=== PATIENT | female | born 1965 | race Native Hawaiian/Other Pacific Islander ===

== ENCOUNTER → 2023-12-30 | Outpatient (CLI) | payer OTHER, SELFPAY ==
[2023-12-30 11:31] LABS: Basophils % (Auto) 1 % (0-2.5); Eosinophils % (Auto) 0 % (0-10); Hematocrit 38.5 % (36.0-46.0); Hemoglobin 12.6 g/dL (12.0-16.0); Immature Granulocytes % (Auto) 0 % (0-0); Lymphocytes # (Auto) 1.2 Thou/mm3 (1.0-4.8); Lymphocytes % (Auto) 32 % (10-50); Mean Corpuscular HGB Conc 32.7 g/dl (31.0-37.0); Mean Corpuscular Hemoglobin 28.6 pg (25.0-35.0); Mean Corpuscular Volume 88 fL (80-100); Monocytes # (Auto) 0.4 Thou/mm3 (0.0-0.8); Monocytes % (Auto) 11 % (0-12); Neutrophils # (Auto) 2.1 Thou/mm3 (1.8-7.7); Neutrophils % (Auto) 57 % (37-80); Nucleated Red Blood Cell % 0 /100 WBC (0); Platelet Count 201 Thou/mm3 (140-440); RDW Standard Deviation 43.3 fL (36.4-46.3); White Blood Count 3.8 Thou/mm3 (3.6-11.0)
[2023-12-30 11:42] LABS: Alanine Aminotransferase 20 U/L (10-49); Albumin, Serum 4.7 gm/dL (3.5-5.0); Albumin/Globulin Ratio 1.6 (1.2-2.2); Alkaline Phosphatase 53 U/L (46-116); Anion Gap 5 (7-16); Aspartate Amino Transferase 24 U/L (0-34); BUN/Creatinine Ratio 14 Ratio (12-20); Bilirubin,Total 0.6 mg/dL (0.3-1.2); Blood Urea Nitrogen 10 mg/dL (9-23); Calcium 9.7 mg/dL (8.3-10.6); Calcium (Corrected) 9.7 mg/dL (8.5-10.1); Carbon Dioxide 30.4 mMol/L (20.0-31.0); Chloride 105 mMol/L (98-107); Creatinine (Component) 0.7 mg/dL (0.6-1.3); Glucose 90 mg/dL (74-106); Osmolality,Calculated 278 (275-295); Sodium 140 mMol/L (136-145); Total Protein 7.7 gm/dL (5.7-8.2); eGFR > 60 See Note
== END | disposition home or self-care (01) ==
LOC: SCTO 10:09
PROVIDERS: PCP Family Medicine; Referring Provider Internal Medicine Hematology & Oncology; Visit Provider Internal Medicine Hematology & Oncology
DX: C50.411 Malignant neoplasm of upper-outer quadrant of right female breast (principal); G56.92 Unspecified mononeuropathy of left upper limb
CPT/HCPCS: 36415; 80053; 85025

== ENCOUNTER → 2024-01-07 | Outpatient (CLI) | payer OTHER, SELFPAY ==
[2024-01-07 10:58] LABS: Basophils % (Auto) 1 % (0-2.5); Eosinophils % (Auto) 0 % (0-10); Hematocrit 37.7 % (36.0-46.0); Hemoglobin 12.5 g/dL (12.0-16.0); Immature Granulocytes % (Auto) 0 % (0-0); Immature Granulocytes Auto 0.01 Thou/mm3 (0.00-0.00); Lymphocytes # (Auto) 1.1 Thou/mm3 (1.0-4.8); Lymphocytes % (Auto) 29 % (10-50); Mean Corpuscular HGB Conc 33.2 g/dl (31.0-37.0); Mean Corpuscular Volume 88 fL (80-100); Monocytes # (Auto) 0.4 Thou/mm3 (0.0-0.8); Monocytes % (Auto) 10 % (0-12); Neutrophils # (Auto) 2.3 Thou/mm3 (1.8-7.7); Neutrophils % (Auto) 59 % (37-80); Nucleated Red Blood Cell % 0 /100 WBC (0); Platelet Count 220 Thou/mm3 (140-440); RDW Standard Deviation 43.2 fL (36.4-46.3); Red Blood Count 4.31 Miln/mm3 (4.00-5.20); White Blood Count 3.9 Thou/mm3 (3.6-11.0)
[2024-01-07 11:36] LABS: Alanine Aminotransferase 24 U/L (10-49); Albumin, Serum 4.6 gm/dL (3.5-5.0); Albumin/Globulin Ratio 1.6 (1.2-2.2); Alkaline Phosphatase 56 U/L (46-116); Anion Gap 4 (7-16); Aspartate Amino Transferase 27 U/L (0-34); BUN/Creatinine Ratio 17 Ratio (12-20); Bilirubin,Total 0.6 mg/dL (0.3-1.2); Blood Urea Nitrogen 12 mg/dL (9-23); Calcium 9.8 mg/dL (8.3-10.6); Calcium (Corrected) 9.8 mg/dL (8.5-10.1); Carbon Dioxide 31.1 mMol/L (20.0-31.0); Cardiac Risk Estimate 2.8 RATIO (3.7-5.6); Chloride 105 mMol/L (98-107); Cholesterol 140 mg/dL (132-200); Creatinine (Component) 0.7 mg/dL (0.6-1.3); Free T4 (Free Thyroxine) 1.41 ng/dL (0.89-1.76); Globulin 2.8 gm/dL (2.3-3.5); Glucose 88 mg/dL (74-106); HDL Cholesterol 50 mg/dL (40-60); LDL Cholesterol,Calculated 68 mg/dL (0-130); Osmolality,Calculated 278 (275-295); Potassium 4.2 mMol/L (3.4-5.1); Sodium 140 mMol/L (136-145); Thyroid Stimulating Hormone 0.58 uIU/mL (0.55-4.78); Total Protein 7.4 gm/dL (5.7-8.2); Triglycerides 111 mg/dL (30-150); eGFR > 60 See Note
== END | disposition home or self-care (01) ==
LOC: COPL 09:59
PROVIDERS: PCP Family Medicine; Referring Provider Family Medicine; Visit Provider Family Medicine
DX: E78.2 Mixed hyperlipidemia (principal); D64.9 Anemia, unspecified; R94.6 Abnormal results of thyroid function studies
CPT/HCPCS: 36415; 80053; 80061; 84439; 84443; 85025

== ENCOUNTER 2024-01-21 10:10 | Outpatient (RCR) | payer OTHER, SELFPAY | END 2024-01-24 23:59 | disposition home or self-care (01) | LOC: SCTC 10:10 | PROVIDERS: PCP Family Medicine; Referring Provider Family Medicine; Visit Provider Nurse Practitioner Family | DX: C50.311 Malignant neoplasm of lower-inner quadrant of right female breast (principal); M85.80 Other specified disorders of bone density and structure, unspecified site; Z79.811 Long term (current) use of aromatase inhibitors; E03.9 Hypothyroidism, unspecified; Z90.11 Acquired absence of right breast and nipple | CPT/HCPCS: 99212; G0463 ==

== ENCOUNTER → 2024-03-02 | Outpatient (CLI) | payer OTHER, SELFPAY ==
--- NOTE | 2024-03-02 09:15 | XR_ITS ---
Examination: Diagnostic digital mammography, unilateral, left Computer aided detection 3-D breast Tomosynthesis, unilateral Date and time of exam: March 02, 2024 0908 hours INDICATIONS: Personal history right breast cancer right mastectomy, history focal asymmetry upper outer quadrant left breast Technique: Nonmagnified MLO, CC views of the left breast have been obtained, reconstructed from 3-D Tomosynthesis images. R2 computer aided detection program utilized for evaluation of suspicious masses and/or abnormal calcifications. 3-D Tomosynthesis images obtained. Findings: The breast is heterogeneously dense, which may obscure small masses Focal asymmetry is unchanged upper outer left breast Diffuse left breast calcifications Impression: BI-RADS category 2: Benign findings Yearly follow-up mammography Please see the left breast sonogram report 11/04/2023 recommend dating 6 month left breast sonogram follow-up
== END | disposition home or self-care (01) ==
PROVIDERS: PCP Family Medicine; Referring Provider Nurse Practitioner Family; Visit Provider Nurse Practitioner Family
DX: R92.322 Mammographic fibroglandular density, left breast (principal); R92.8 Other abnormal and inconclusive findings on diagnostic imaging of breast
CPT/HCPCS: 77061; 77065; G0279

== ENCOUNTER → 2024-03-24 | Outpatient (CLI) | payer OTHER, SELFPAY ==
[2024-03-24 11:40] LABS: Basophils % (Auto) 1 % (0-2.5); Eosinophils % (Auto) 0 % (0-10); Hematocrit 37.8 % (36.0-46.0); Hemoglobin 12.3 g/dL (12.0-16.0); Immature Granulocytes % (Auto) 0 % (0-0); Lymphocytes # (Auto) 1.2 Thou/mm3 (1.0-4.8); Lymphocytes % (Auto) 32 % (10-50); Mean Corpuscular HGB Conc 32.5 g/dl (31.0-37.0); Mean Corpuscular Hemoglobin 28.7 pg (25.0-35.0); Mean Corpuscular Volume 88 fL (80-100); Monocytes # (Auto) 0.4 Thou/mm3 (0.0-0.8); Monocytes % (Auto) 10 % (0-12); Neutrophils # (Auto) 2.1 Thou/mm3 (1.8-7.7); Neutrophils % (Auto) 57 % (37-80); Nucleated Red Blood Cell % 0 /100 WBC (0); Platelet Count 165 Thou/mm3 (140-440); RDW Standard Deviation 43.3 fL (36.4-46.3); Red Blood Count 4.28 Miln/mm3 (4.00-5.20); White Blood Count 3.7 Thou/mm3 (3.6-11.0)
[2024-03-24 13:06] LABS: Alanine Aminotransferase 31 U/L (10-49); Albumin, Serum 4.4 gm/dL (3.5-5.0); Albumin/Globulin Ratio 1.6 (1.2-2.2); Alkaline Phosphatase 55 U/L (46-116); Anion Gap 7 (7-16); Aspartate Amino Transferase 30 U/L (0-34); BUN/Creatinine Ratio 17 Ratio (12-20); Bilirubin,Total 0.6 mg/dL (0.3-1.2); Blood Urea Nitrogen 12 mg/dL (9-23); Carbon Dioxide 30.5 mMol/L (20.0-31.0); Chloride 107 mMol/L (98-107); Creatinine (Component) 0.7 mg/dL (0.6-1.3); Globulin 2.7 gm/dL (2.3-3.5); Glucose 85 mg/dL (74-106); Osmolality,Calculated 285 (275-295); Potassium 4.6 mMol/L (3.4-5.1); Sodium 144 mMol/L (136-145); Total Protein 7.1 gm/dL (5.7-8.2); eGFR > 60 See Note
== END | disposition home or self-care (01) ==
PROVIDERS: PCP Family Medicine; Referring Provider Nurse Practitioner Family; Visit Provider Nurse Practitioner Family
DX: C50.411 Malignant neoplasm of upper-outer quadrant of right female breast (principal); G56.92 Unspecified mononeuropathy of left upper limb
CPT/HCPCS: 36415; 80053; 85025

== ENCOUNTER 2024-03-31 10:41 | Outpatient (RCR) | payer OTHER, SELFPAY | END 2024-04-23 23:59 | disposition home or self-care (01) | LOC: SCTC 10:41 | PROVIDERS: PCP Family Medicine; Referring Provider Family Medicine; Visit Provider Nurse Practitioner Family | DX: C50.311 Malignant neoplasm of lower-inner quadrant of right female breast (principal); Z79.811 Long term (current) use of aromatase inhibitors; Z90.11 Acquired absence of right breast and nipple; Z92.21 Personal history of antineoplastic chemotherapy; Z92.3 Personal history of irradiation; M85.80 Other specified disorders of bone density and structure, unspecified site | CPT/HCPCS: 99212; G0463 ==

== ENCOUNTER → 2024-05-04 | Outpatient (CLI) | payer OTHER, SELFPAY ==
--- NOTE | 2024-05-04 08:45 | XR_ITS ---
Examination: Breast ultrasound, unilateral, left complete Date and time of exam: May 04, 2024 0839 hrs. Indications: 3:00 cyst versus solid nodule left breast on sonogram November 04, 2023 Technique: Real-time tellez scale ultrasonographic imaging performed left breast including all 4 quadrants as well as nipple retroareolar and axillary region. Findings: Multiple benign cysts, the largest in the 4:00 position 5 x 5 mm No solid nodules Impression: BI-RADS Category 2: Benign findings
== END | disposition home or self-care (01) ==
PROVIDERS: PCP Family Medicine; Referring Provider Family Medicine; Visit Provider Family Medicine
DX: R92.322 Mammographic fibroglandular density, left breast (principal)
CPT/HCPCS: 76641

== ENCOUNTER → 2024-06-09 | Outpatient (CLI) | payer OTHER, SELFPAY ==
[2024-06-09 11:32] LABS: Basophils % (Auto) 1 % (0-2.5); Eosinophils % (Auto) 0 % (0-10); Hematocrit 40.2 % (36.0-46.0); Hemoglobin 13.3 g/dL (12.0-16.0); Immature Granulocytes % (Auto) 0 % (0-0); Immature Granulocytes Auto 0.01 Thou/mm3 (0.00-0.00); Lymphocytes # (Auto) 1.1 Thou/mm3 (1.0-4.8); Lymphocytes % (Auto) 32 % (10-50); Mean Corpuscular HGB Conc 33.1 g/dl (31.0-37.0); Mean Corpuscular Hemoglobin 28.7 pg (25.0-35.0); Mean Corpuscular Volume 87 fL (80-100); Monocytes # (Auto) 0.3 Thou/mm3 (0.0-0.8); Monocytes % (Auto) 9 % (0-12); Neutrophils % (Auto) 58 % (37-80); Nucleated Red Blood Cell % 0 /100 WBC (0); Platelet Count 231 Thou/mm3 (140-440); RDW Standard Deviation 41.8 fL (36.4-46.3); Red Blood Count 4.64 Miln/mm3 (4.00-5.20); White Blood Count 3.4 Thou/mm3 (3.6-11.0)
[2024-06-09 11:57] LABS: Alanine Aminotransferase 23 U/L (10-49); Albumin, Serum 4.5 gm/dL (3.5-5.0); Albumin/Globulin Ratio 1.5 (1.2-2.2); Alkaline Phosphatase 60 U/L (46-116); Anion Gap 4 (7-16); Aspartate Amino Transferase 26 U/L (0-34); BUN/Creatinine Ratio 11 Ratio (12-20); Bilirubin,Total 0.5 mg/dL (0.3-1.2); Blood Urea Nitrogen 9 mg/dL (9-23); Calcium 9.4 mg/dL (8.3-10.6); Calcium (Corrected) 9.4 mg/dL (8.5-10.1); Carbon Dioxide 31.2 mMol/L (20.0-31.0); Chloride 105 mMol/L (98-107); Creatinine (Component) 0.8 mg/dL (0.6-1.3); Globulin 3.1 gm/dL (2.3-3.5); Glucose 93 mg/dL (74-106); Osmolality,Calculated 278 (275-295); Potassium 4.2 mMol/L (3.4-5.1); Sodium 140 mMol/L (136-145); Total Protein 7.6 gm/dL (5.7-8.2); eGFR > 60 See Note
== END | disposition home or self-care (01) ==
LOC: SCTO 10:49
PROVIDERS: PCP Family Medicine; Referring Provider Nurse Practitioner Family; Visit Provider Nurse Practitioner Family
DX: C50.411 Malignant neoplasm of upper-outer quadrant of right female breast (principal); G56.92 Unspecified mononeuropathy of left upper limb
CPT/HCPCS: 36415; 80053; 85025

== ENCOUNTER 2024-06-16 11:11 | Outpatient (RCR) | payer OTHER, SELFPAY ==
--- NOTE | 2024-06-16 14:50 | CTCFLWUP_ITS ---
Patient: SAROJ BRANCH : 1965 Page 2 of 2 FOLLOW UP NOTE DATE OF SERVICE: 06/16/2024 NAME: SAROJ BRANCH ACCOUNT: [id number] : 1965 AGE: 58 INTERVAL HISTORY: Chief Complaint Follow-up for breast cancer, progressive weight loss History of Present Illness Filipe Patel is a patient with a history of breast cancer, diagnosed on December 23, 2012, presenting for follow-up. The patient's initial cancer was T2N0 and MX, and she received chemotherapy followed by 10 years of anti- endocrine therapy. The patient's primary concern is progressive weight loss with no clear reason. She has a history of hyperthyroidism but is not currently under the care of an applications systems engineer. Her last known TSH was less than one. The patient's mammogram has been negative, and her last CT scan of the whole body, done in 2022, did not reveal any concern for malignancy. The patient has completed 10 years of anti-endocrine therapy, which the clinician notes was longer than the recommended 7 years. A recent bone density scan performed on October 28, 2023, showed weakening bones in the lumbar spine and hip. The lumbar mineralization has decreased by 11.9% compared to July 2018, and hip mineralization has decreased by 1.7% compared to a previous scan. The patient mentions taking medication for her bones but expresses confusion about a new shot that was ordered for her. She states that she returned paperwork related to this new treatment but has not been contacted about it yet. Medical History - Breast cancer, initially diagnosed on December 23, 2012 (T2N0MX, ER-positive) - Hyperthyroidism - Osteoporosis or osteopenia (indicated by decreased bone density) Medications and Supplements - Letrozole - Taken for 10 years as anti-endocrine therapy - Discontinued due to potential bone weakening effects - Bone strengthening medicine - Taken for weak bones - Not effective Review of Systems General: Positive for weight loss. ONCOLOGY HISTORY:?[facility] Hx? Locally advanced right breast cancer (2012) treated with neoadjuvant AC followed by Taxotere chemotherapy followed by right modified radical mastectomy and radiation therapy to the right chest wall (11/19/2013). Currently on adjuvant anastrozole. INTERVAL HISTORY: Saroj Branch is a 58-year-old ENG speaking female with following oncology history. 2012: Patient was diagnosed with locally advanced right-sided breast cancer. 04/29/2013: Patient completed 4 cycles of AC chemotherapy in the neoadjuvant setting. June 2013: Patient completed an additional 4 cycles of Taxotere in the neoadjuvant setting. 08/10/2013: Patient had a right modified radical mastectomy. Pathology showed residual 2.5 cm invasive ductal carcinoma with focal mucinous complement. 6 lymph nodes were negative for metastatic disease. It was staged as T2N0 disease. 09/27/2013?11/19/2013: Patient received 6300 cGy radiation to the right chest. 11/17/2013: Patient was started on adjuvant tamoxifen. 10/13/2018: CT scan of the chest abdomen and pelvis with contrast?no evidence of metastatic disease. 11/19/2018: Tamoxifen stopped due to vaginal bleeding. 12/04/2018: Endometrial biopsy was done. There was no evidence of endometrial- itis, hyperplasia or atypia or malignancy. 12/30/2018: Patient was started on anastrozole 1 mg p.o. daily. 07/20/2020: CT scan of the chest with contrast was obtained due to chest pain. 08/14/2020: Bone scan? 09/06/2020: Left breast ultrasound 09/06/2020 lumbar spine 5 views? 09/06/2020: Left breast mammogram? 09/18/2020: Bilateral breast MRI? 12/27/2020: Left breast mammogram? 07/11/2021: Left breast ultrasound? 12/23/2022: Left breast mammogram? 10/28/2023: DEXA-osteopenia DIAGNOSIS: Locally advanced right breast cancer (2012) treated with neoadjuvant AC followed by Taxotere chemotherapy followed by right modified radical mastectomy and radiation therapy to the right chest wall (11/19/2013). Currently on adjuvant anastrozole. Osteopenia, 10/28/2023 DATE OF DIAGNOSIS: 12/23/2012 STAGE/TNM: IIA T2 N0 M0 TREATMENT HISTORY: Care?Plan Start?Date Cycle Day Intent DOXOrubicin?60,?Cyclophos?600?+?G 02/08/2013 1 21 Curative?(primary) DOCEtaxel?75?mg/m*2?-?Breast 05/04/2013 1 21 Curative?(primary) Reclast 04/06/2024 1 365 Palliative HISTORY OF PRESENT ILLNESS: OTHER MEDICAL HISTORY/CONDITIONS: FAMILY HISTORY: ?[facility] Family Hx? 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 alendronate - 35 mg 1 tab Daily 2. anastrozole - 1 mg 1 tab 1 tab po q daily 3. Caltrate 600 + D - 600 mg (1,500 mg)-800 unit 1 tab Twice a Day 4. gabapentin - 300 mg Three times a day 5. loratadine - 10 mg 1 tab Daily 6. montelukast - 10 mg 1 tab Daily 7. multivitamin - 1 tab Daily 8. omeprazole - 40 mg 1 Capsule Daily?Palabra Meds? Medications Last Reconciled by Kamila So MA on 06/16/2024 ALLERGIES: tramadol; meloxicam; LATEX REVIEW OF SYSTEMS: A complete 14-point review of systems was performed and is negative except as noted in interval history. PHYSICAL EXAMINATION:?[facility] PE? VITAL SIGNS: Temperature?97.9, B/P?116/77, Oxygen?Saturation?98% Weight?110?lbs PAIN: 0 - No pain ECOG Performance Status: 0 - Asymptomatic and fully active Neuro: Alert and oriented x 4 very very thin woman with a temporal wasting Conjunctiva white. Neck is supple no adenopathy Chest clear to auscultation. CV: normal heart sounds No pedal edema. LABORATORY DATA: I have personally reviewed and interpreted each of the patient?s relevant lab tests, abnormal findings are below: Date 03/24/24 06/09/24 ??WHITE?BLOOD?COUNT?(Thou/mm3) 3.7 3.4?L ??RED?BLOOD?COUNT?(Miln/mm3) 4.28 4.64 ??HEMOGLOBIN?(gm/dl) 12.3 13.3 ??HEMATOCRIT?(%) 37.8 40.2 ??PLATELET?COUNT?(Thou/mm3) 165 231 ??NEUTROPHILS?%,?AUTO?(%) 57 58 ??LYMPH?%,?AUTO?(%) 32 32 ??NEUTROPHILS,?AUTO?(Thou/mm3) 2.1 2.0 ??GLUCOSE,RANDOM?(mg/dL) 85 93 ??BLOOD?UREA?NITROGEN?(mg/dL) 12 9 ??CREATININE?(mg/dL) 0.70 0.80 ??SODIUM?(mmol/L) 144 140 ??POTASSIUM?(mmol/L) 4.6 4.2 ??CHLORIDE?(mmol/L) 107 105 ??CrCl?(CandG)?(ml/min) 71.51 61.47 ??AST/SGOT?(Unit/L) 30 26 ??ALT/SGPT?(Unit/L) 31 23 ??ALKALINE?PHOSPHATASE?(Unit/L) 55 60 ??BILIRUBIN,?TOTAL?(mg/dL) 0.6 0.5 ??PROTEIN?TOTAL?(gm/dl) 7.1 7.6 ??ALBUMIN,?SERUM?(gm/dl) 4.4 4.5 ??GLOBULIN?(gm/dl) 2.7 3.1 ??ALBUMIN/GLOBULIN?RATIO 1.6 1.5 ??CALCIUM,?SERUM?(mg/dL) 10.0 9.4 ??CALCIUM?SERUM?(CORRECTED)?(mg/dL) 10.0 9.4 ASSESSMENT/PLAN:?Hawk Steward Assessment/Plan? 1. History of locally advanced breast cancer treated with neoadjuvant AC followed by Taxotere followed by right modified radical mastectomy, radiation therapy. No clinical evidence of recurrence Ms. Branch is clinically doing well without any complaints. PET/CT scan negative (01/09/2023). Completed anastrozole for 10 years as Citracal DEXA showed osteopenia, 10/28/2023 Patient does not wanted to take Fosamax as it is a pill, she reports she is forgetful about taking a weekly patient would like to try ReclastFlavio Patel, a patient with a history of breast cancer diagnosed in 2012, presents for follow-up with progressive weight loss and a history of hyperthyroidism. Breast Cancer (History) Assessment: Patient was initially diagnosed with breast cancer on December 23, 2012. The cancer was ER-positive, and HER2-negative. Initial staging was T2N0MX. Treatment included chemotherapy and 10 years of anti-endocrine therapy. Recent mammogram has been negative, and a whole-body CT scan in 2022 did not reveal any concern for malignancy. However, the patient has been experiencing progressive weight loss without a clear reason, which warrants further investigation. Plan: - Order CT scan of chest, abdomen, and pelvis to evaluate for any malignancy - Refer for nutrition counseling to help with weight gain - Discontinue anti-endocrine therapy (patient has completed 10 years, which is longer than the recommended 7 years) Osteoporosis Assessment: Recent bone density scan from October 28, 2023, revealed weak bones in the lumbar spine and hip. Lumbar mineralization decreased by 11.9% compared to July 2018, and hip mineralization decreased by 1.7% compared to a previous scan. The prolonged use of anti-endocrine therapy (10 years instead of the recommended 7 years) may have contributed to bone weakening. Additionally, the patient's hyperthyroidism and weight loss may be exacerbating factors. Plan: - Initiate Zometa (zoledronic acid) for bone strengthening - Discontinue current oral bone medication once Zometa is initiated - Educate patient on the importance of physician-managed care for osteoporosis Hyperthyroidism Assessment: Patient has a history of hyperthyroidism but is not currently under the care of an applications systems engineer. Last known TSH was less than 1, indicating potential ongoing thyroid dysfunction. This condition may be contributing to the patient's weight loss and could be affecting bone health. Plan: - Order TSH, T4, and T3 tests - Refer to applications systems engineer for closer follow-up and management of hyperthyroidism 3. Colon cancer screening Patient reports normal colonoscopy and endoscopy done in 10/2023. ORDERS: Order # Description [id number] Thyroid Stimulating Hormone + Assay Triiodothyronine (T3) + Cortisol Free + Thyroxine, Free [id number] MD Follow Up [id number] Scan + Abdomen and Pelvis + Chest + With W/O Contrast [id number] MD Follow Up 2 Months [id number] CBC + Comprehensive Metabolic Panel [id number] Lab Appointment [id number] CBC + Comprehensive Metabolic Panel [id number] Lab Appointment [id number] CBC + Comprehensive Metabolic Panel [id number] Lab Appointment [id number] CBC + Comprehensive Metabolic Panel [id number] Lab Appointment [id number] CBC + Comprehensive Metabolic Panel [id number] Lab Appointment RETURN TO CLINIC: I will see her back in the clinic in 2 months. BILLING AND COMPLIANCE: I reviewed external records from providers outside my specialty as summarized above. I spent a total of 50 minutes on this patient?s care on the day of their visit excluding time spent related to any billed procedures. This time includes time spent with the patient as well as time spent documenting in the medical record, reviewing patients records and tests, obtaining history, placing orders, communicating with other healthcare professionals, counseling the patient, family or caregiver, and/or care coordination for the diagnoses above. Electronically Signed by: Vidal Steward MD T: 2:48 PM CC: Chung?Rafael?, Izaiah?Minerva? PCP: Manuel Smallwood Referring: Manuel Smallwood This document was completed utilizing speech recognition software. Grammatical errors, random word insertions, pronoun errors, and incomplete sentences are an occasional consequence of this system due to software limitations, ambient noise, and hardware issues. Any formal questions or concerns about the content, text or information contained within the body of this dictation should be directly addressed to the provider for clarification.
[2024-06-25 15:44] VITALS: BMI 20.3
== END 2024-06-23 23:59 | disposition home or self-care (01) ==
LOC: SCTC 11:11
PROVIDERS: PCP Family Medicine; Referring Provider Family Medicine; Visit Provider Internal Medicine Hematology & Oncology
DX: Z08 Encounter for follow-up examination after completed treatment for malignant neoplasm (principal); Z85.3 Personal history of malignant neoplasm of breast; Z90.11 Acquired absence of right breast and nipple; Z92.3 Personal history of irradiation; Z92.29 Personal history of other drug therapy; M81.0 Age-related osteoporosis without current pathological fracture; E05.90 Thyrotoxicosis, unspecified without thyrotoxic crisis or storm; R63.4 Abnormal weight loss; Z68.1 Body mass index [BMI] 19.9 or less, adult
CPT/HCPCS: 99212; G0463

== ENCOUNTER 2024-06-29 12:58 | Outpatient (RCR) | payer OTHER, SELFPAY | END 2024-07-24 23:59 | disposition home or self-care (01) | LOC: SCTC 12:58 | PROVIDERS: PCP Family Medicine; Referring Provider Family Medicine; Visit Provider Internal Medicine Hematology & Oncology | DX: M81.0 Age-related osteoporosis without current pathological fracture (principal); Z85.3 Personal history of malignant neoplasm of breast; Z90.11 Acquired absence of right breast and nipple; Z92.3 Personal history of irradiation; E05.90 Thyrotoxicosis, unspecified without thyrotoxic crisis or storm | CPT/HCPCS: 96365; J3489 ==

== ENCOUNTER → 2024-07-20 | Outpatient (CLI) | payer OTHER, SELFPAY ==
[2024-07-20 15:09] LABS: Basophils % (Auto) 1 % (0-2.5); Eosinophils % (Auto) 0 % (0-10); Hematocrit 35.4 % (36.0-46.0); Hemoglobin 11.7 g/dL (12.0-16.0); Immature Granulocytes % (Auto) 0 % (0-0); Immature Granulocytes Auto 0.01 Thou/mm3 (0.00-0.00); Lymphocytes % (Auto) 26 % (10-50); Mean Corpuscular HGB Conc 33.1 g/dl (31.0-37.0); Mean Corpuscular Hemoglobin 29.1 pg (25.0-35.0); Mean Corpuscular Volume 88 fL (80-100); Monocytes # (Auto) 0.5 Thou/mm3 (0.0-0.8); Monocytes % (Auto) 12 % (0-12); Neutrophils # (Auto) 2.4 Thou/mm3 (1.8-7.7); Neutrophils % (Auto) 61 % (37-80); Nucleated Red Blood Cell % 0 /100 WBC (0); Platelet Count 256 Thou/mm3 (140-440); RDW Standard Deviation 43.7 fL (36.4-46.3); Red Blood Count 4.02 Miln/mm3 (4.00-5.20)
[2024-07-20 15:26] LABS: Alanine Aminotransferase 22 U/L (10-49); Albumin, Serum 4.3 gm/dL (3.5-5.0); Albumin/Globulin Ratio 1.6 (1.2-2.2); Alkaline Phosphatase 60 U/L (46-116); Anion Gap 7 (7-16); Aspartate Amino Transferase 26 U/L (0-34); BUN/Creatinine Ratio 17 Ratio (12-20); Bilirubin,Total 0.5 mg/dL (0.3-1.2); Blood Urea Nitrogen 12 mg/dL (9-23); Chloride 104 mMol/L (98-107); Creatinine (Component) 0.7 mg/dL (0.6-1.3); Globulin 2.7 gm/dL (2.3-3.5); Glucose 117 mg/dL (74-106); Osmolality,Calculated 283 (275-295); Sodium 142 mMol/L (136-145); eGFR > 60 See Note
== END | disposition home or self-care (01) ==
LOC: SCTO 14:16
PROVIDERS: PCP Family Medicine; Referring Provider Nurse Practitioner Family; Visit Provider Nurse Practitioner Family
DX: C50.411 Malignant neoplasm of upper-outer quadrant of right female breast (principal); G56.92 Unspecified mononeuropathy of left upper limb
CPT/HCPCS: 36415; 80053; 85025

== ENCOUNTER → 2024-07-21 | Outpatient (CLI) | payer OTHER, SELFPAY ==
--- NOTE | 2024-07-21 09:00 | XR_ITS ---
Examination: CT chest with intravenous contrast CT abdomen with intravenous contrast CT pelvis with intravenous contrast 2-D coronal and sagittal reconstructions Time of exam: July 13, 2024 0857 hours Comparison PET/CT scan January 02, 2023 INDICATIONS: Diagnosis malignant neoplasm upper outer quadrant right female breast, 2014 mastectomy, right breast pain 2 months, restaging CTDI: vol (mGy) : 4.64 DLP: (mGycm): 329 Technique: Multiple axial images of the chest, abdomen and pelvis with intravenous contrast, 3.0 mm slice thickness. Images obtained post intravenous injection Isovue 370 60 cc. 2-D sagittal and coronal reconstructions. Low dose protocols were performed. One or more of the following dose reduction techniques were used; automated exposure control, adjustment of the mA and/or KV according to patient size, use of iterative reconstruction technique. Findings: Enlarged left thyroid lobe which extends substernal No thoracic aortic aneurysmal dilatation No pulmonary artery filling defects on this non-CTA study No paratracheal tracheobronchial or bronchopulmonary adenopathy. Status post right mastectomy No chest wall lesion 4 mm nodule lateral left breast axial image 104 No pathologic axillary lymphadenopathy No pneumonia or pulmonary edema or pleural disease 10 mm anterior right lobe liver cyst 4 mm anterior left lobe liver cyst 11 mm lateral right lobe liver cyst No biliary tract dilatation No gallstones Spleen is not enlarged No pancreatic mass No renal or ureteral calculi, no hydronephrosis Aorta normal size No abdominal or pelvic lymphadenopathy No pericecal inflammatory change Retroverted uterus, no pelvic mass Urinary bladder intact Moderate osteopenia Grade 1 anterolisthesis L4 on L5 Moderate degenerative disc disease L3-L4, L5-S1 No osseous metastatic disease depicted IMPRESSION: Consider dedicated thyroid sonography to assess left thyromegaly No mediastinal lymphadenopathy 4 mm nodule lateral left breast, recommend diagnostic mammography, bilateral breast sonography follow-up No abdominal or pelvic mass No abdominal or pelvic lymphadenopathy
== END | disposition home or self-care (01) ==
LOC: CCTX 08:29
PROVIDERS: Referring Provider Internal Medicine Hematology & Oncology; Visit Provider Internal Medicine Hematology & Oncology
DX: C50.411 Malignant neoplasm of upper-outer quadrant of right female breast (principal); G56.92 Unspecified mononeuropathy of left upper limb
CPT/HCPCS: 71260; 74177; A4649; Q9967

== ENCOUNTER → 2024-08-10 | Outpatient (CLI) | payer OTHER, SELFPAY ==
[2024-08-10 09:32] LABS: Misc Send Out* See Sep Rpt
[2024-08-10 11:11] LABS: Free T4 (Free Thyroxine) 1.38 ng/dL (0.89-1.76); Thyroid Stimulating Hormone 0.56 uIU/mL (0.55-4.78)
[2024-08-13 06:09] LABS: T3,Total* 107 ng/dL (76-181)
== END | disposition home or self-care (01) ==
LOC: SCTO 09:06
PROVIDERS: PCP Family Medicine; Referring Provider Internal Medicine Hematology & Oncology; Visit Provider Internal Medicine Hematology & Oncology
DX: C50.411 Malignant neoplasm of upper-outer quadrant of right female breast (principal); G56.92 Unspecified mononeuropathy of left upper limb
CPT/HCPCS: 36415; 84439; 84443; 84480

== ENCOUNTER → 2024-09-15 | Outpatient (CLI) | payer OTHER, SELFPAY ==
[2024-09-15 11:36] LABS: Basophils # (Auto) 0.0 Thou/mm3 (0.0-0.2); Basophils % (Auto) 1 % (0-2.5); Eosinophils # (Auto) 0.0 Thou/mm3 (0.0-0.5); Eosinophils % (Auto) 0 % (0-10); Hematocrit 38.5 % (36.0-46.0); Hemoglobin 12.6 g/dL (12.0-16.0); Immature Granulocytes Auto 0.01 Thou/mm3 (0.00-0.00); Lymphocytes # (Auto) 1.1 Thou/mm3 (1.0-4.8); Lymphocytes % (Auto) 35 % (10-50); Mean Corpuscular HGB Conc 32.7 g/dl (31.0-37.0); Mean Corpuscular Hemoglobin 29.2 pg (25.0-35.0); Mean Corpuscular Volume 89 fL (80-100); Monocytes # (Auto) 0.4 Thou/mm3 (0.0-0.8); Monocytes % (Auto) 11 % (0-12); Neutrophils # (Auto) 1.7 Thou/mm3 (1.8-7.7); Neutrophils % (Auto) 53 % (37-80); Nucleated Red Blood Cell # 0.00 Thou/mm3 (0.00-0.00); Nucleated Red Blood Cell % 0 /100 WBC (0); Platelet Count 144 Thou/mm3 (140-440); RDW Standard Deviation 43.8 fL (36.4-46.3); Red Blood Count 4.32 Miln/mm3 (4.00-5.20); White Blood Count 3.2 Thou/mm3 (3.6-11.0)
[2024-09-15 12:08] LABS: Alanine Aminotransferase 20 U/L (10-49); Albumin, Serum 4.4 gm/dL (3.5-5.0); Albumin/Globulin Ratio 1.4 (1.2-2.2); Alkaline Phosphatase 49 U/L (46-116); Anion Gap 9 (7-16); Aspartate Amino Transferase 31 U/L (0-34); BUN/Creatinine Ratio 11 Ratio (12-20); Bilirubin,Total 0.6 mg/dL (0.3-1.2); Blood Urea Nitrogen 9 mg/dL (9-23); Calcium 9.1 mg/dL (8.3-10.6); Calcium (Corrected) 9.1 mg/dL (8.5-10.1); Carbon Dioxide 28.6 mMol/L (20.0-31.0); Cardiac Risk Estimate 4.5 RATIO (3.7-5.6); Chloride 104 mMol/L (98-107); Cholesterol 212 mg/dL (132-200); Creatinine (Component) 0.8 mg/dL (0.6-1.3); Free T3 3.1 pg/mL (2.3-4.2); Free T4 (Free Thyroxine) 1.42 ng/dL (0.89-1.76); Globulin 3.1 gm/dL (2.3-3.5); Glucose 92 mg/dL (74-106); HDL Cholesterol 47 mg/dL (40-60); LDL Cholesterol,Calculated 138 mg/dL (0-130); Osmolality,Calculated 281 (275-295); Potassium 4.3 mMol/L (3.4-5.1); Sodium 142 mMol/L (136-145); Thyroid Stimulating Hormone 0.62 uIU/mL (0.55-4.78); Total Protein 7.5 gm/dL (5.7-8.2); Triglycerides 136 mg/dL (30-150); eGFR > 60 See Note
[2024-09-15 13:10] LABS: Collection Type, Urine Clean Catch; Squamous Epithelial Cell,Urine 0 /hpf (0-5)
[2024-09-15 14:39] LABS: Bilirubin,Urine Negative (Negative); Blood,Urine Negative (Negative); Clarity,Urine Clear (Clear/Hazy); Color,Urine Colorless (Lt Yel-Yel); Glucose, Urine Negative (Negative); Ketones,Urine Negative (Negative); Leukocyte Esterase,Urine Negative (Negative); Nitrite,Urine Negative (Negative); PH,Urine 7.5 (5.0-7.0); Protein,Urine Negative (Neg - Trace); RBC,Urine 1 /hpf (0-3); Specific Gravity,Urine 1.008 (1.001-1.035); Urobilinogen,Urine Negative mg/dL (0.0-1.0); WBC,Urine 1 /hpf (0-5)
== END | disposition home or self-care (01) ==
LOC: COPL 10:32
PROVIDERS: PCP Family Medicine; Referring Provider Family Medicine; Visit Provider Family Medicine
DX: D64.9 Anemia, unspecified (principal); E78.2 Mixed hyperlipidemia; R94.6 Abnormal results of thyroid function studies
CPT/HCPCS: 36415; 80053; 80061; 81001; 84439; 84443; 84481; 85025

== ENCOUNTER 2024-09-21 10:23 | Outpatient (RCR) | payer OTHER, SELFPAY ==
--- NOTE | 2024-09-21 13:13 | CTCFLWUP_ITS ---
Patient: SAROJ BRANCH : 1965 Page 2 of 2 FOLLOW UP NOTE DATE OF SERVICE: 09/21/2024 NAME: SAROJ BRANCH ACCOUNT: [id number] : 1965 AGE: 58 INTERVAL HISTORY: Saroj, a female patient with thyroid issues, presented for follow-up regarding thyroid enlargement noted on CT scan and weight loss. 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 A June CT scan showed left thyroid megaly, though recent thyroid function tests were normal. Physical examination confirmed an enlarged left thyroid. Management plan includes thyroid ultrasound, endocrinology consultation, and addressing transportation barriers affecting her ability to attend specialist appointments. Weight loss will be monitored to determine if related to increased physical activity or thyroid dysfunction. Chief Complaint Enlarged thyroid gland noted on CT scan History of Present Illness Saroj Branch, a female patient with a history of thyroid issues, presents for follow-up regarding her thyroid condition and recent weight loss. 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 The patient mentions her thyroid is bigger based on a CT scan performed in June, which showed left thyroid megaly. She expresses concern about the possibility of cancer but states her primary care physician, Dr. Torres, told her that her thyroid function tests were normal. Saroj reports having thyroid and urine tests last , with all numbers being normal. 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 She attributes her weight loss to the physical nature of her work at the [employer]. The patient also mentions feeling scared and nervous about driving on highways, which has impacted her ability to attend specialist appointments. She understand that she was referred to certified shorthand reporter at [facility] but do not want to follow-up with the specialist as she finds it inconvenient. Review of Systems General: Positive for weight loss. Neurological: Positive for nervousness and shaking while driving on highways. Objective: Physical Examination Neck: Thyroid is enlarged, specifically the left part of the thyroid is noted to be big. Laboratory, Imaging, and Diagnostic Test Results - CT scan (June 2024): Left thyroid enlargement noted. Report states Consider dedicated thyroid ultrasound to assess left thyroid megaly. - Thyroid function tests (09/17/2024): All values within normal range (specific values not mentioned) - Urinalysis (09/17/2024): Results normal (specific values not mentioned) ONCOLOGY HISTORY:?[facility] Hx? Locally advanced right breast cancer (2012) treated with neoadjuvant AC followed by Taxotere chemotherapy followed by right modified radical mastectomy and radiation therapy to the right chest wall (11/19/2013). Currently on adjuvant anastrozole. INTERVAL HISTORY: Saroj Branch is a 58-year-old ENG speaking female with following oncology history. 2012: Patient was diagnosed with locally advanced right-sided breast cancer. 04/29/2013: Patient completed 4 cycles of AC chemotherapy in the neoadjuvant setting. June 2013: Patient completed an additional 4 cycles of Taxotere in the neoadjuvant setting. 08/10/2013: Patient had a right modified radical mastectomy. Pathology showed residual 2.5 cm invasive ductal carcinoma with focal mucinous complement. 6 lymph nodes were negative for metastatic disease. It was staged as T2N0 disease. 09/27/2013?11/19/2013: Patient received 6300 cGy radiation to the right chest. 11/17/2013: Patient was started on adjuvant tamoxifen. 10/13/2018: CT scan of the chest abdomen and pelvis with contrast?no evidence of metastatic disease. 11/19/2018: Tamoxifen stopped due to vaginal bleeding. 12/04/2018: Endometrial biopsy was done. There was no evidence of endometrial- itis, hyperplasia or atypia or malignancy. 12/30/2018: Patient was started on anastrozole 1 mg p.o. daily. 07/20/2020: CT scan of the chest with contrast was obtained due to chest pain. 08/14/2020: Bone scan? 09/06/2020: Left breast ultrasound 09/06/2020 lumbar spine 5 views? 09/06/2020: Left breast mammogram? 09/18/2020: Bilateral breast MRI? 12/27/2020: Left breast mammogram? 07/11/2021: Left breast ultrasound? 12/23/2022: Left breast mammogram? 10/28/2023: DEXA-osteopenia DIAGNOSIS: Locally advanced right breast cancer (2012) treated with neoadjuvant AC followed by Taxotere chemotherapy followed by right modified radical mastectomy and radiation therapy to the right chest wall (11/19/2013). Currently on adjuvant anastrozole. Osteopenia, 10/28/2023 DATE OF DIAGNOSIS: 12/23/2012 STAGE/TNM: IIA T2 N0 M0 TREATMENT HISTORY: Care?Plan Start?Date Cycle Day Intent DOXOrubicin?60,?Cyclophos?600?+?G 02/08/2013 1 21 Curative?(primary) DOCEtaxel?75?mg/m*2?-?Breast 05/04/2013 1 21 Curative?(primary) Reclast 06/29/2024 1 365 Palliative HISTORY OF PRESENT ILLNESS: OTHER MEDICAL HISTORY/CONDITIONS: FAMILY HISTORY: ?Clone Family Hx? 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 Caltrate 600 + D - 600 mg (1,500 mg)-800 unit 1 tab Twice a Day 2. gabapentin - 300 mg Three times a day 3. loratadine - 10 mg 1 tab Daily 4. montelukast - 10 mg 1 tab Daily 5. multivitamin - 1 tab Daily?Palabra Meds? Medications Last Reconciled by Kamila So MA on 09/21/2024 ALLERGIES: tramadol; meloxicam; LATEX REVIEW OF SYSTEMS: A complete 14-point review of systems was performed and is negative except as noted in interval history. PHYSICAL EXAMINATION:?[facility] PE? VITAL SIGNS: Temperature?96.7, B/P?102/64, Oxygen?Saturation?99% Weight?102?lbs PAIN: 0 - No pain ECOG Performance Status: 0 - Asymptomatic and fully active Neuro: Alert and oriented x 4 very very thin woman with a temporal wasting Conjunctiva white. Neck is supple no adenopathy Chest clear to auscultation. CV: normal heart sounds No pedal edema. LABORATORY DATA: I have personally reviewed and interpreted each of the patient?s relevant lab tests, abnormal findings are below: Date 07/20/24 09/15/24 ??WHITE?BLOOD?COUNT?(Thou/mm3) 4.0 3.2?L ??RED?BLOOD?COUNT?(Miln/mm3) 4.02 4.32 ??HEMOGLOBIN?(gm/dl) 11.7?L 12.6 ??HEMATOCRIT?(%) 35.4?L 38.5 ??PLATELET?COUNT?(Thou/mm3) 256 144 ??NEUTROPHILS?%,?AUTO?(%) 61 53 ??LYMPH?%,?AUTO?(%) 26 35 ??NEUTROPHILS,?AUTO?(Thou/mm3) 2.4 1.7?L ??GLUCOSE,RANDOM?(mg/dL) 117?H 92 ??BLOOD?UREA?NITROGEN?(mg/dL) 12 9 ??CREATININE?(mg/dL) 0.70 0.80 ??SODIUM?(mmol/L) 142 142 ??POTASSIUM?(mmol/L) 4.0 4.3 ??CHLORIDE?(mmol/L) 104 104 ??CrCl?(CandG)?(ml/min) 71.26 62.35 ??AST/SGOT?(Unit/L) 26 31 ??ALT/SGPT?(Unit/L) 22 20 ??ALKALINE?PHOSPHATASE?(Unit/L) 60 49 ??BILIRUBIN,?TOTAL?(mg/dL) 0.5 0.6 ??PROTEIN?TOTAL?(gm/dl) 7.0 7.5 ??ALBUMIN,?SERUM?(gm/dl) 4.3 4.4 ??GLOBULIN?(gm/dl) 2.7 3.1 ??ALBUMIN/GLOBULIN?RATIO 1.6 1.4 ??CALCIUM,?SERUM?(mg/dL) 9.0 9.1 ??CALCIUM?SERUM?(CORRECTED)?(mg/dL) 9.0 9.1 ASSESSMENT/PLAN:?Hawk Steward Assessment/Plan? 1. History of locally advanced breast cancer treated with neoadjuvant AC followed by Taxotere followed by right modified radical mastectomy, radiation therapy. No clinical evidence of recurrence Ms. Branch is clinically doing well without any complaints. PET/CT scan negative (01/09/2023). Completed anastrozole for 10 years as Citracal DEXA showed osteopenia, 10/28/2023 Patient does not wanted to take Fosamax as it is a pill, she reports she is forgetful about taking a weekly patient would like to try ReclastFlavio Patel, a patient with a history of breast cancer diagnosed in 2012, presents for follow-up with progressive weight loss and a history of hyperthyroidism. Breast Cancer (History) Assessment: Patient was initially diagnosed with breast cancer on December 23, 2012. The cancer was ER-positive, and HER2-negative. Initial staging was T2N0MX. Treatment included chemotherapy and 10 years of anti-endocrine therapy. Recent mammogram has been negative, and a whole-body CT scan in 2022 did not reveal any concern for malignancy. However, the patient has been experiencing progressive weight loss without a clear reason, which warrants further investigation. Plan: - Order CT scan of chest, abdomen, and pelvis to evaluate for any malignancy - Refer for nutrition counseling to help with weight gain - Discontinue anti-endocrine therapy (patient has completed 10 years, which is longer than the recommended 7 years) Osteoporosis Assessment: Recent bone density scan from October 28, 2023, revealed weak bones in the lumbar spine and hip. Lumbar mineralization decreased by 11.9% compared to July 2018, and hip mineralization decreased by 1.7% compared to a previous scan. The prolonged use of anti-endocrine therapy (10 years instead of the recommended 7 years) may have contributed to bone weakening. Additionally, the patient's hyperthyroidism and weight loss may be exacerbating factors. Plan: - Initiate Zometa (zoledronic acid) for bone strengthening - Discontinue current oral bone medication once Zometa is initiated - Educate patient on the importance of physician-managed care for osteoporosis Hyperthyroidism Assessment: Patient has a history of hyperthyroidism but is not currently under the care of an certified shorthand reporter. Last known TSH was less than 1, indicating potential ongoing thyroid dysfunction. This condition may be contributing to the patient's weight loss and could be affecting bone health. Plan: - Order TSH, T4, and T3 tests - Refer to certified shorthand reporter for closer follow-up and management of hyperthyroidism 3. Colon cancer screening Patient reports normal colonoscopy and endoscopy done in 10/2023. 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 Thyroid enlargement Assessment: Patient reports recent thyroid and urine tests with normal results. However, a CT scan from June revealed left thyroid megaly. The patient's primary care physician, Dr. Torres, reportedly stated the thyroid is okay. Despite normal thyroid function tests, the enlarged left thyroid warrants further investigation due to the potential risk of malignancy or other thyroid disorders. The patient has experienced significant weight loss, which could be related to thyroid dysfunction or increased physical activity at her new job. 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 Previous weight was 130-135 lbs. The weight loss could be attributed to increased physical activity in her new role or potentially related to thyroid dysfunction. Given the thyroid enlargement noted on CT scan, a thorough evaluation of both lifestyle factors and endocrine function is warranted. Plan: - Monitor weight at follow-up visits - Assess dietary intake and physical activity levels - Correlate weight changes with thyroid function test results and ultrasound findings - Consider referral to assembler lay ups if weight loss continues or becomes concerning Transportation barriers to care Assessment: Patient expresses anxiety about driving on highways, which limits her ability to attend specialist appointments. This transportation barrier may impact her access to necessary medical care, particularly for the recommended endocrinology evaluation. Plan: - Explore local transportation options or medical transport services - Discuss possibility of family members assisting with transportation to appointments - Consider telemedicine options for specialist consultations if available ORDERS: Order # Description [id number] Comprehensive Metabolic Panel - 12 + CBC with Auto Diff + MD Follow Up 1 Year [id number] RETURN TO CLINIC: I reviewed the diagnosis, prognosis, and recommended treatment/procedure options with the patient (and/or their legal community service representative), including the potential benefits, risks, side effects and alternative therapies. We also discussed the option of no treatment and the possibility of clinical trial participation, if applicable. All questions were addressed, and they demonstrated understanding. They provided informed consent to proceed with the proposed plan of care. BILLING AND COMPLIANCE: I reviewed external records from providers outside my specialty as summarized above. I spent a total of 50 minutes on this patient?s care on the day of their visit excluding time spent related to any billed procedures. This time includes time spent with the patient as well as time spent documenting in the medical record, reviewing patients records and tests, obtaining history, placing orders, communicating with other healthcare professionals, counseling the patient, family or caregiver, and/or care coordination for the diagnoses above. Electronically Signed by: Vidal Steward MD T: 1:11 PM CC: Chung?Rafael?, Izaiah?Minerva? PCP: Manuel Smallwood Referring: Manuel Smallwood This document was completed utilizing speech recognition software. Grammatical errors, random word insertions, pronoun errors, and incomplete sentences are an occasional consequence of this system due to software limitations, ambient noise, and hardware issues. Any formal questions or concerns about the content, text or information contained within the body of this dictation should be directly addressed to the provider for clarification.
== END 2024-09-23 23:59 | disposition home or self-care (01) ==
LOC: SCTC 10:23
PROVIDERS: PCP Family Medicine; Referring Provider Family Medicine; Visit Provider Internal Medicine Hematology & Oncology
DX: C50.411 Malignant neoplasm of upper-outer quadrant of right female breast (principal); Z85.3 Personal history of malignant neoplasm of breast; M81.0 Age-related osteoporosis without current pathological fracture; E04.9 Nontoxic goiter, unspecified; R63.4 Abnormal weight loss; Z68.1 Body mass index [BMI] 19.9 or less, adult; Z59.82 Transportation insecurity
CPT/HCPCS: 99212; G0463

== ENCOUNTER → 2024-11-17 | Outpatient (CLI) | payer OTHER, SELFPAY ==
--- NOTE | 2024-11-17 08:30 | XR_ITS ---
Examination: Thyroid sonography complete TECHNIQUE: Grayscale sonographic images thyroid lobes Date and time: November 17, 2024 0825 hours INDICATIONS: CT chest July 21, 2024 enlarged left thyroid lobe FINDINGS: Right thyroid 4.4 cm Upper pole nodule 4 x 3 mm Lower pole nodule 9 x 11 mm Nodule below the right thyroid lobe 1.5 x 1.0 cm Left thyroid 4.0 cm Lower pole nodule 19 x 12 mm IMPRESSION: Bilateral thyroid nodules, consider ultrasound-guided fine-needle aspiration of the lower pole left thyroid nodule 1.9 x 0.9 x 1.2 cm 15 x 10 mm nodule below the right thyroid lobe, consider parathyroid adenoma, consider nuclear medicine sestamibi parathyroid scan follow-up
== END | disposition home or self-care (01) ==
PROVIDERS: PCP Family Medicine; Referring Provider Internal Medicine Hematology & Oncology; Visit Provider Internal Medicine Hematology & Oncology
DX: E04.1 Nontoxic single thyroid nodule (principal); C50.411 Malignant neoplasm of upper-outer quadrant of right female breast; G56.92 Unspecified mononeuropathy of left upper limb
CPT/HCPCS: 76536

== ENCOUNTER → 2025-01-18 | Outpatient (CLI) | payer BC, SELFPAY ==
[2025-01-18 11:22] LABS: Basophils # (Auto) 0.0 Thou/mm3 (0.0-0.2); Basophils % (Auto) 1 % (0-2.5); Eosinophils # (Auto) 0.0 Thou/mm3 (0.0-0.5); Eosinophils % (Auto) 0 % (0-10); Hematocrit 38.5 % (36.0-46.0); Hemoglobin 12.6 g/dL (12.0-16.0); Immature Granulocytes Auto 0.01 Thou/mm3 (0.00-0.00); Lymphocytes # (Auto) 1.4 Thou/mm3 (1.0-4.8); Lymphocytes % (Auto) 35 % (10-50); Mean Corpuscular HGB Conc 32.7 g/dl (31.0-37.0); Mean Corpuscular Hemoglobin 28.6 pg (25.0-35.0); Mean Corpuscular Volume 88 fL (80-100); Monocytes # (Auto) 0.4 Thou/mm3 (0.0-0.8); Monocytes % (Auto) 11 % (0-12); Neutrophils # (Auto) 2.1 Thou/mm3 (1.8-7.7); Neutrophils % (Auto) 53 % (37-80); Nucleated Red Blood Cell # 0.00 Thou/mm3 (0.00-0.00); Nucleated Red Blood Cell % 0 /100 WBC (0); Platelet Count 201 Thou/mm3 (140-440); RDW Standard Deviation 42.7 fL (36.4-46.3); Red Blood Count 4.40 Miln/mm3 (4.00-5.20); White Blood Count 3.9 Thou/mm3 (3.6-11.0)
[2025-01-18 11:59] LABS: Alanine Aminotransferase 17 U/L (10-49); Albumin, Serum 4.5 gm/dL (3.5-5.0); Albumin/Globulin Ratio 1.6 (1.2-2.2); Anion Gap 8 (7-16); Aspartate Amino Transferase 15 U/L (0-34); BUN/Creatinine Ratio 16 Ratio (12-20); Bilirubin,Total 0.5 mg/dL (0.3-1.2); Blood Urea Nitrogen 13 mg/dL (9-23); Calcium 9.7 mg/dL (8.3-10.6); Calcium (Corrected) 9.7 mg/dL (8.5-10.1); Carbon Dioxide 30.7 mMol/L (20.0-31.0); Chloride 103 mMol/L (98-107); Creatinine (Component) 0.8 mg/dL (0.6-1.3); Free T4 (Free Thyroxine) 1.49 ng/dL (0.89-1.76); Globulin 2.8 gm/dL (2.3-3.5); Glucose 88 mg/dL (74-106); Osmolality,Calculated 282 (275-295); Potassium 4.0 mMol/L (3.4-5.1); Sodium 142 mMol/L (136-145); Thyroid Stimulating Hormone 0.71 uIU/mL (0.55-4.78); Total Protein 7.3 gm/dL (5.7-8.2); eGFR > 60 See Note
[2025-01-18 12:34] LABS: Alkaline Phosphatase 44 U/L (46-116); Cardiac Risk Estimate 4.6 RATIO (3.7-5.6); Cholesterol 225 mg/dL (132-200); HDL Cholesterol 49 mg/dL (40-60); LDL Cholesterol,Calculated 141 mg/dL (0-130); Triglycerides 176 mg/dL (30-150)
== END | disposition home or self-care (01) ==
LOC: COPL 10:19
PROVIDERS: PCP Family Medicine; Referring Provider Family Medicine; Visit Provider Family Medicine
DX: D72.819 Decreased white blood cell count, unspecified (principal); E78.2 Mixed hyperlipidemia; R94.6 Abnormal results of thyroid function studies
CPT/HCPCS: 36415; 80053; 80061; 84439; 84443; 85025